=== PATIENT | female | born 1970 | race Caucasian/White ===

== ENCOUNTER → 2020-05-31 14:09 | Outpatient (BNVA) | payer MEDICARE, MEDICAID, SELFPAY | PROVIDERS: Family Provider Family Medicine; PCP Family Medicine; Visit Provider Nurse Practitioner Family | DX: I10 Essential (primary) hypertension (principal); E10.9 Type 1 diabetes mellitus without complications; E56.9 Vitamin deficiency, unspecified; L85.3 Xerosis cutis; L84 Corns and callosities; M79.671 Pain in right foot; L60.2 Onychogryphosis; E10.69 Type 1 diabetes mellitus with other specified complication; Z87.81 Personal history of (healed) traumatic fracture; F33.2 Major depressive disorder, recurrent severe without psychotic features; E55.9 Vitamin D deficiency, unspecified | CPT/HCPCS: 80053; 80061; 82043; 82306; 83036; 84439; 84443 ==

== ENCOUNTER 2020-07-13 13:48 | Emergency (ER) | payer MEDICARE, MEDICAID, SELFPAY ==
[2020-07-13 14:03] VITALS: BP 137/83; PULSE 79; RESP 18; TEMP 36.6; O2SAT 97; BMI 31.4
--- NOTE | 2020-07-13 14:46 | CTR_ITS ---
PROCEDURE INFORMATION: Exam: CT Head Without Contrast Exam date and time: 07/13/2020 3:32 PM Age: 50 years old Clinical indication: Injury or trauma; Fall; Blunt trauma (contusions or hematomas); Patient HX: Seizure with blow to left side of head; Additional info: Recurrent seizures TECHNIQUE: Imaging protocol: Computed tomography of the head without contrast. Radiation optimization: All CT scans at this facility use at least one of these dose optimization techniques: automated exposure control; mA and/or kV adjustment per patient size (includes targeted exams where dose is matched to clinical indication); or iterative reconstruction. COMPARISON: No relevant prior studies available. RADIATION DOSE METRICS: Total DLP (mGy-cm): 842.06 FINDINGS: Brain: Brain parenchyma demonstrates normal attenuation. No significant white matter disease demonstrated. No intracranial hemorrhage noted. No acute infarct demonstrated. Cerebral ventricles: The ventricles are proportional to the sulci. No hydrocephalus is noted. Bones/joints: No fracture or other acute osseous abnormality. Paranasal sinuses: Mild mucoperiosteal thickening in the ethmoid sinuses. No air-fluid levels in the paranasal sinuses. Mastoid air cells: Bilateral mastoidectomies are noted. Soft tissues: The soft tissues appear unremarkable. CT/CT head wo con* [id number] IMPRESSION: 1. No acute intracranial abnormality demonstrated. 2. Bilateral mastoidectomies are noted. Radiation Dose CTDIVOL = (mGy): DLP = 842.06 (mGy-cm)
--- NOTE | 2020-07-13 14:46 | XR_ITS ---
WS: [id number] Exam: XR chest 1V portable [id number] Date/Time of Exam: 07/13/2020 2:46 PM Reason For Exam: seizure No priors. Findings: The lungs are clear and fully expanded. Costophrenic angles are sharp. No infiltrates. Bronchovascula r relief appears normal. Cardiac silhouette is unremarkable. Bony elements are intact. XR/XR chest 1V portable [id number] IMPRESSION: Unremarkable chest radiograph.
--- NOTE | 2020-07-13 14:55 | ED_ITS ---
HPI - Seizure General: Chief Complaint: Seizure Stated Complaint: SENT OVER BY DUE TO FALL AND SEIZURE Time Seen by Provider: 07/13/20 14:24 Source: patient Mode of arrival: ambulatory Limitations: no limitations History of Present Illness: HPI Narrative: Patient is a 50-year-old female with no past medical history of seizures and presents to the emergency department following possible seizure. She states that last night she was with her friend sitting on her porch and she apparently fell down from a sitting position. Her friend said that she was in a tonic state with all her muscles clenched. The whole episode lasted about 20 seconds. The patient states that she has been having hot flashes for several weeks and assumed she was getting to be menopausal. She was also having a hot flash yesterday when the possible seizure happened. She says she was not postictal. Yesterday morning she had also had an episode where she got out of bed and She knew she was on the floor and had broken her dentures into from the fall. She is not sure what happened and is wondering if she had another seizure-like activity. She currently has a headache and nausea. She denies dizziness, denies chest pain or difficulty breathing currently. She denies any fever. She went to see her primary care provider today who asked her to come to the emergency department for evaluation MD complaint: possible seizure Associated symptoms: Deny chills or fever(s) Review of Systems General: Reports: 10 or more systems reviewed and unremarkable except in HPI and below Const: Denies: fever(s), chills or body aches Eyes: Denies: change in vision or blurry vision ENMT: Denies: throat pain, enlarged tonsils, odynophagia, hoarseness, mouth pain or swelling of lips/tongue Card: Denies: palpitations, irregular heart rhythm, edema or swelling of feet/ankles Resp: Denies: dyspnea, productive cough or non-productive cough GI: Reports: nausea; Denies: abdominal pain or vomiting : Denies: flank pain, difficulty voiding, dysuria, urinary frequency, urinary urgency or urinary hesitancy Musc: Denies: neck pain, back pain or extremity swelling Skin/Breast: Denies: rash, pruritus or erythema Neuro: Reports: headache(s) and seizure-like activity; Denies: numbness in extremities or weakness in extremities Endo: Denies: polyuria, polydipsia or tired all the time PFSH ED PFSH: Medical History Anxiety Enrolled in chronic care management Essential hypertension GERD (gastroesophageal reflux disease) Major depressive disorder Type 2 diabetes mellitus Social History Smoking and tobacco status: current every day smoker cigarettes Current gender identity: Female Physical Exam Const: COMMON NORMALS: no acute distress, average body habitus, patient oriented x3, no limitations, healthy appearing, alert and well nourished HENMT: COMMON NORMALS: normocephalic, atraumatic and moist oral mucous membranes HEAD & SCALP: normocephalic and atraumatic Eye: COMMON NORMALS: Equal, round and reactive pupils present, EOMs intact bilaterally, conjunctivae normal and no scleral icterus CONJUNCTIVA: Yes conjunctivae normal PUPIL: Yes Equal, round and reactive pupils present Neck/C-Spine: COMMON NORMALS: full ROM, supple, no meningeal signs, no JVD and No carotid bruits Resp: COMMON NORMALS: normal respiratory effort, No retractions, No use of accessory muscles, clear to auscultation bilaterally and percussion normal AUSCULTATION: clear to auscultation bilaterally PERCUSSION: percussion normal Cardio: COMMON NORMALS: no JVD, regular rate, regular rhythm, S1 normal heart sound present, S2 normal heart sound present, No gallops present (Cardio), No clicks present (Cardio), No murmurs present (Cardio), No rub (Cardio) and Peripheral pulses 2+ throughout RATE: regular rate RHYTHM: regular rhythm HEART SOUNDS: S1 normal heart sound present and S2 normal heart sound present PERIPHERAL PULSES: Peripheral pulses 2+ throughout GI: COMMON NORMALS: Normal to inspection, nondistended, normoactive bowel sounds present, Soft to palpation, non-tender, No hepatosplenomegaly present, no masses and no bruits PALPATION: Yes Soft to palpation and Yes No hepatosplenomegaly present Extremity: COMMON NORMALS: normal to inspection, full ROM, capillary refill normal, no calf tenderness and no pedal edema Neuro: COMMON NORMALS: patient oriented x3 SENSORIUM/ORIENTATION: Yes alert MENINGEAL SIGNS: Yes no meningeal signs Skin: COMMON NORMALS: no rashes or lesions noted, no wounds, turgor normal, no jaundice, no petechiae and no mottling GENERAL SKIN EXAM: no rashes or lesions noted and turgor normal Course Reevaluation(s): Reevaluation #1: Discussed her lab and imaging findings with her. Also discussed my conversation with Dr. Whitfield. We will start her on Keppra and she will be scheduled to follow-up with Dr. Whitfield on we will also schedule an outpatient EEG. She voiced understanding and he is in agreement with the plan Time: 17:30 Consultations: Consultation #1: Discussed the patient with Dr. Whitfield, neurologist. She agrees that it appears patient is having seizures and advises that we start the patient on Keppra 500 mg p.o. twice daily. She needs an outpatient EKG and will see her in the office. She will try to work right in as an add-on in the clinic. Time: 17:27 Vital Signs: Vital signs: Vital Signs Temperature 97.8 F 07/13/20 14:03 Pulse Rate 77 07/13/20 18:00 Respiratory Rate 18 07/13/20 18:00 Blood Pressure 118/74 07/13/20 18:00 Pulse Oximetry 98 07/13/20 18:00 MDM - Seizure MDM Narrative: Medical decision making narrative: Patient with what appears to be new onset seizures. Evaluation in the emergency department is unremarkable and she is discharged home with a prescription for Keppra. She will get an outpatient EEG and be followed by the neurologist. She had no repeat seizures while here in the emergency department. Medical Records: Attestation: I reviewed the patient's medical records. Lab Data: Attestation: I reviewed the patient's lab results. Labs: Lab Results 07/13/20 07/13/20 07/13/20 Range/Units 15:50 15:50 15:50 WBC 11.0 H (4.0-10.0) 10^3/ uL RBC 5.04 (4.1-5.3) 10^6/u L Hgb 16.1 H (11.5-15.3) g/dL Hct 48.6 H (37.0-47.0) % MCV 96.4 (81-99) fL MCH 31.9 (28.0-34.0) pg MCHC 33.1 (30.0-36.0) g/dL RDW 13.6 (12.1-15.1) % Plt Count 302 (130-400) 10^3/c mm MPV 10.9 H (7.4-10.4) fL Neut % (Auto) 58.9 % Lymph % (Auto) 27.0 % [place] % (Auto) 9.3 % Eos % (Auto) 2.7 % Baso % (Auto) 1.9 % Neut # (Auto) 6.47 (1.8-7.7) 10^3/u L Lymph # (Auto) 3.0 (0.8-4.8) 10^3/u L [place] # (Auto) 1.0 H (0.2-0.9) 10^3/u L Eos # (Auto) 0.3 (0.0-0.8) 10^3/u L Baso # (Auto) 0.2 H (0.0-0.1) 10^3/u L Nucleated RBC % (a uto) 0 % Nucleated RBCs # 0.0 /100WBC Sodium 138 (136-145) mmol/L Potassium 4.1 (3.5-5.1) mmol/L Chloride 102 (98-107) mmol/L Carbon Dioxide 25 (22-29) mmol/L Anion Gap 15.1 (5-19) BUN 9 (6-20) mg/dL Creatinine 0.7 (0.5-0.9) mg/dL GFR Calculation 87.9 L (90-130) mL/min Glucose 96 (65-115) mg/dL Calculated Osmolal ity 285 (285-295) mOsm/k g Lactate 0.9 (0.5-2.2) mmol/L Calcium 9.9 (8.5-10.5) mg/dL Magnesium 1.9 (1.7-2.3) mg/dL Total Bilirubin 0.7 (0.15-1.2) mg/dL AST 23 (0-32) U/L ALT 21 (0-33) U/L Alkaline Phosphata se 89 (35-105) IU/L Creatine Kinase 100 (26-192) U/L Troponin T Baselin e (0-10) ng/L C-Reactive Protein 2.1 (0.0-4.9) mg/L Total Protein 6.9 (6.6-8.7) g/dL Albumin 4.8 (3.5-5.2) g/dL Globulin 2.1 (1.3-4.6) g/dL TSH 3.13 (0.27-4.20) uIU/ mL HCG, Qual (Negative) Urine Color (Yellow) Urine Appearance (CLEAR) Urine pH (5-7) Ur Specific Gravit y (1.005-1.030) Urine Protein (Negative) Urine Glucose (UA) (Normal) Urine Ketones (Negative) Urine Blood (Negative) Urine Nitrate (Negative) Urine Bilirubin (Negative) Urine Urobilinogen (Negative) mg/dL Ur Leukocyte Juliet ase (Negative) Urine Opiates Scre en (Negative) ng/mL Ur Barbiturates Sc reen (Negative) ng/mL Ur Phencyclidine S crn (Negative) ng/mL Ur Amphetamines Sc reen (Negative) ng/mL U Benzodiazepines Scrn (Negative) ng/mL Urine Cocaine Scre en (Negative) ng/mL U Marijuana (THC) Screen (Negative) ng/mL Ethyl Alcohol < 10 (0-10) mg/dL 07/13/20 07/13/20 07/13/20 Range/Units 15:50 15:55 15:55 WBC (4.0-10.0) 10^3/ uL RBC (4.1-5.3) 10^6/u L Hgb (11.5-15.3) g/dL Hct (37.0-47.0) % MCV (81-99) fL MCH (28.0-34.0) pg MCHC (30.0-36.0) g/dL RDW (12.1-15.1) % Plt Count (130-400) 10^3/c mm MPV (7.4-10.4) fL Neut % (Auto) % Lymph % (Auto) % [place] % (Auto) % Eos % (Auto) % Baso % (Auto) % Neut # (Auto) (1.8-7.7) 10^3/u L Lymph # (Auto) (0.8-4.8) 10^3/u L [place] # (Auto) (0.2-0.9) 10^3/u L Eos # (Auto) (0.0-0.8) 10^3/u L Baso # (Auto) (0.0-0.1) 10^3/u L Nucleated RBC % (a uto) % Nucleated RBCs # /100WBC Sodium (136-145) mmol/L Potassium (3.5-5.1) mmol/L Chloride (98-107) mmol/L Carbon Dioxide (22-29) mmol/L Anion Gap (5-19) BUN (6-20) mg/dL Creatinine (0.5-0.9) mg/dL GFR Calculation (90-130) mL/min Glucose (65-115) mg/dL Calculated Osmolal ity (285-295) mOsm/k g Lactate (0.5-2.2) mmol/L Calcium (8.5-10.5) mg/dL Magnesium (1.7-2.3) mg/dL Total Bilirubin (0.15-1.2) mg/dL AST (0-32) U/L ALT (0-33) U/L Alkaline Phosphata se (35-105) IU/L Creatine Kinase (26-192) U/L Troponin T Baselin e 6 (0-10) ng/L C-Reactive Protein (0.0-4.9) mg/L Total Protein (6.6-8.7) g/dL Albumin (3.5-5.2) g/dL Globulin (1.3-4.6) g/dL TSH (0.27-4.20) uIU/ mL HCG, Qual Negative (Negative) Urine Color Yellow (Yellow) Urine Appearance Clear (CLEAR) Urine pH 5.0 (5-7) Ur Specific Gravit y 1.025 (1.005-1.030) Urine Protein Neg (Negative) Urine Glucose (UA) Norm (Normal) Urine Ketones 1+ H (Negative) Urine Blood Neg (Negative) Urine Nitrate Negative (Negative) Urine Bilirubin Neg (Negative) Urine Urobilinogen Norm (Negative) mg/dL Ur Leukocyte Juliet ase Negative (Negative) Urine Opiates Scre en (Negative) ng/mL Ur Barbiturates Sc reen (Negative) ng/mL Ur Phencyclidine S crn (Negative) ng/mL Ur Amphetamines Sc reen (Negative) ng/mL U Benzodiazepines Scrn (Negative) ng/mL Urine Cocaine Scre en (Negative) ng/mL U Marijuana (THC) Screen (Negative) ng/mL Ethyl Alcohol (0-10) mg/dL 07/13/20 Range/Units 15:55 WBC (4.0-10.0) 10^3/ uL RBC (4.1-5.3) 10^6/u L Hgb (11.5-15.3) g/dL Hct (37.0-47.0) % MCV (81-99) fL MCH (28.0-34.0) pg MCHC (30.0-36.0) g/dL RDW (12.1-15.1) % Plt Count (130-400) 10^3/c mm MPV (7.4-10.4) fL Neut % (Auto) % Lymph % (Auto) % [place] % (Auto) % Eos % (Auto) % Baso % (Auto) % Neut # (Auto) (1.8-7.7) 10^3/u L Lymph # (Auto) (0.8-4.8) 10^3/u L [place] # (Auto) (0.2-0.9) 10^3/u L Eos # (Auto) (0.0-0.8) 10^3/u L Baso # (Auto) (0.0-0.1) 10^3/u L Nucleated RBC % (a uto) % Nucleated RBCs # /100WBC Sodium (136-145) mmol/L Potassium (3.5-5.1) mmol/L Chloride (98-107) mmol/L Carbon Dioxide (22-29) mmol/L Anion Gap (5-19) BUN (6-20) mg/dL Creatinine (0.5-0.9) mg/dL GFR Calculation (90-130) mL/min Glucose (65-115) mg/dL Calculated Osmolal ity (285-295) mOsm/k g Lactate (0.5-2.2) mmol/L Calcium (8.5-10.5) mg/dL Magnesium (1.7-2.3) mg/dL Total Bilirubin (0.15-1.2) mg/dL AST (0-32) U/L ALT (0-33) U/L Alkaline Phosphata se (35-105) IU/L Creatine Kinase (26-192) U/L Troponin T Baselin e (0-10) ng/L C-Reactive Protein (0.0-4.9) mg/L Total Protein (6.6-8.7) g/dL Albumin (3.5-5.2) g/dL Globulin (1.3-4.6) g/dL TSH (0.27-4.20) uIU/ mL HCG, Qual (Negative) Urine Color (Yellow) Urine Appearance (CLEAR) Urine pH (5-7) Ur Specific Gravit y (1.005-1.030) Urine Protein (Negative) Urine Glucose (UA) (Normal) Urine Ketones (Negative) Urine Blood (Negative) Urine Nitrate (Negative) Urine Bilirubin (Negative) Urine Urobilinogen (Negative) mg/dL Ur Leukocyte Juliet ase (Negative) Urine Opiates Scre en Negative (Negative) ng/mL Ur Barbiturates Sc reen Negative (Negative) ng/mL Ur Phencyclidine S crn Negative (Negative) ng/mL Ur Amphetamines Sc reen Negative (Negative) ng/mL U Benzodiazepines Scrn Negative (Negative) ng/mL Urine Cocaine Scre en Negative (Negative) ng/mL U Marijuana (THC) Screen Positive H (Negative) ng/mL Ethyl Alcohol (0-10) mg/dL Imaging Data^: CXR: Attestation: I personally reviewed and interpreted this imaging study as follows: Radiologist's impression: [address] [address] XRay Report Signed Patient: Ruth Black #: [id number] : 1970Acct#:[id number] Age/Sex: 50 / FADM Date: 07/13/20 Loc: ERRoom/Bed: Attending Dr: Ordering Provider/Ordering MD: Cathie Valencia [place], [facility] of Service: 07/13/20 Procedure(s): XR chest 1V portable [id number] Accession Number(s): [id number] Report Number: [id number] WS: [id number] Exam: XR chest 1V portable [id number] Date/Time of Exam: 07/13/2020 2:46 PM Reason For Exam: seizure No priors. Findings: The lungs are clear and fully expanded. Costophrenic angles are sharp. No infiltrates. Bronchovascular relief appears normal. Cardiac silhouette is unremarkable. Bony elements are intact. XR/XR chest 1V portable [id number] IMPRESSION: Unremarkable chest radiograph. Dictated By:Tj Forte DO Signed By:Subha Gonzalez Date/Time:07/13/20 150 DD/ 1506 CT Head: Attestation: I personally reviewed and interpreted this imaging study as follows: Radiologist's impression: [facility] [address] [place] [address] CT Scan Report Signed Patient: Ruth Black #: [id number] : 1970Acct#:[id number] Age/Sex: 50 / FADM Date: 07/13/20 Loc: ERRoom/Bed: Attending Dr: Ordering Provider/Ordering MD: Cathie Valencia MD, [facility] Date of Service: 07/13/20 Procedure(s): CT head wo con* [id number] Accession Number(s): [id number] Report Number: [id number] PROCEDURE INFORMATION: Exam: CT Head Without Contrast Exam date and time: 07/13/2020 3:32 PM Age: 50 years old Clinical indication: Injury or trauma; Fall; Blunt trauma (contusions or hematomas); Patient HX: Seizure with blow to left side of head; Additional info: Recurrent seizures TECHNIQUE: Imaging protocol: Computed tomography of the head without contrast. Radiation optimization: All CT scans at this facility use at least one of these dose optimization techniques: automated exposure control; mA and/or kV adjustment per patient size (includes targeted exams where dose is matched to clinical indication); or iterative reconstruction. COMPARISON: No relevant prior studies available. RADIATION DOSE METRICS: Total DLP (mGy-cm): 842.06 FINDINGS: Brain: Brain parenchyma demonstrates normal attenuation. No significant white matter disease demonstrated. No intracranial hemorrhage noted. No acute infarct demonstrated. Cerebral ventricles: The ventricles are proportional to the sulci. No hydrocephalus is noted. Bones/joints: No fracture or other acute osseous abnormality. Paranasal sinuses: Mild mucoperiosteal thickening in the ethmoid sinuses. No air-fluid levels in the paranasal sinuses. Mastoid air cells: Bilateral mastoidectomies are noted. Soft tissues: The soft tissues appear unremarkable. CT/CT head wo con* [id number] IMPRESSION: 1. No acute intracranial abnormality demonstrated. 2. Bilateral mastoidectomies are noted. Radiation Dose CTDIVOL = (mGy): DLP = 842.06 (mGy-cm) Dictated By:Carmelo Blair MD Signed By:Carmelo Blair MDSigned Date/Time:07/13/201627 DD/ 25 Discharge Plan Discharge Patient Disposition: Home Clinical Impression: New onset seizure Condition: Stable Prescriptions: New Keppra 500 mg tablet 500 mg PO BID Qty: 60 RF: 0 Continued omeprazole 40 mg capsule,delayed release(DR/EC) 40 mg PO QAM RF: 0 desvenlafaxine succinate [Pristiq] 100 mg tablet extended release 24 hr 100 mg PO DAILY RF: 0 fluticasone propionate [Allergy Relief (fluticasone)] 50 mcg/actuation spray,suspension 2 spray INTRANASAL DAILY PRN (Reason: unknown) RF: 0 glucagon 1 mg/0.2 mL syringe See Rx Instructions .ROUTE .COMPLEX RF: 0 albuterol sulfate [ProAir HFA] 90 mcg/actuation HFA aerosol inhaler 2 puff INHALATION Q6H PRN (Reason: Shortness Of Breath) RF: 0 Levemir FlexTouch U-100 Insuln 100 unit/mL (3 mL) insulin pen See Rx Instructions .ROUTE .COMPLEX RF: 0 amoxicillin-pot clavulanate [Augmentin] 875-125 mg tablet 1 tab PO BID 10 Days Qty: 20 RF: 0 epinephrine 0.3 mg/0.3 mL syringe 0.3 mg IM Q10M PRN (Reason: anaphylaxis) Qty: 2 RF: 3 pramipexole 1 mg tablet 1 mg PO BEDTIME RF: 0 Tylenol Extra Strength 500 mg Tablet 1,000 mg PO PRN RF: 0 Zyrtec 10 mg capsule 10 mg PO DAILY RF: 0 Discharge Orders: Discharge Order (Routine); Ordered 07/13/20 Ordered By: Cathie Valencia Referrals: Maria Ines Whitfield MD [Physician] - Discharge Diet: Usual diet Discharge Activity: Increase activity as tolerated Patient Instructions: New-Onset Seizure in Adults (ED) Activity Restrictions/Additional Instructions: Return for any new or worsening symptoms. Follow-up with your primary care provider within 3 days. You will be scheduled to see the neurologist as soon as possible, you will also be scheduled for an outpatient EEG which will measure your brain waves and see if you are having seizures. In the interim start taking the antiseizure medications. Drink plenty of fluids to keep well-hydrated. Coding Level of Care Code ED Legal Specialist for [employer] Fwd Exam Comprehensive
[2020-07-13 16:15] LABS: Add Urine Microscopic? NO
[2020-07-13 16:18] LABS: Basophils # 0.2 10^3/uL (0.0-0.1); Basophils % 1.9 %; Eosinophils # 0.3 10^3/uL (0.0-0.8); Eosinophils % 2.7 %; Hematocrit 48.6 % (37.0-47.0); Hemoglobin 16.1 g/dL (11.5-15.3); Mean Corpuscular HGB Conc 33.1 g/dL (30.0-36.0); Mean Corpuscular Hemoglobin 31.9 pg (28.0-34.0); Mean Corpuscular Volume 96.4 fL (81-99); Mean Platelet Volume 10.9 fL (7.4-10.4); Monocytes % 9.3 %; Neutrophils # 6.47 10^3/uL (1.8-7.7); Neutrophils % 58.9 %; Nucleated Red Blood Cells % 0 %; Platelet Count 302 10^3/cmm (130-400); Red Blood Count 5.04 10^6/uL (4.1-5.3); Red Cell Distribution Width 13.6 % (12.1-15.1)
[2020-07-13 16:24] LABS: Bilirubin Urine Neg (Negative); Blood Urine Neg (Negative); Glucose Urine UA Norm (Normal); Ketones Urine 1+ (Negative); Leukocyte Esterase Urine Negative (Negative); Nitrate Urine Negative (Negative); Protein Urine Neg (Negative); Specific Gravity, Urine 1.025 (1.005-1.030); Urine Appearance Clear (CLEAR); Urine Color Yellow (Yellow); Urobilinogen Urine Norm (Negative)
[2020-07-13 16:26] LABS: HCG Qualitative Urine. Negative (Negative)
[2020-07-13 16:33] LABS: Lactate (Lactic Acid level) 0.9 mmol/L (0.5-2.2)
[2020-07-13 16:34] LABS: Amphetamines Screen Urine Negative (Negative); Barbiturates Screen Urine Negative (Negative); Benzodiazepines Screen Urine Negative (Negative); Cocaine Screen Urine Negative (Negative); Opiate Screen Urine Negative (Negative); PCP Screen Urine Negative (Negative); THC Screen Urine Positive (Negative)
[2020-07-13 16:39] LABS: Troponin(5th) Baseline 6 ng/L (0-10)
[2020-07-13 16:48] LABS: Alanine Aminotransferase 21 U/L (0-33); Albumin Level 4.8 g/dL (3.5-5.2); Alkaline Phosphatase 89 IU/L (35-105); Anion Gap 15.1 (5-19); Aspartate Amino Transferase 23 U/L (0-32); Blood Urea Nitrogen 9 mg/dL (6-20); C Reactive Protein 2.1 mg/L (0.0-4.9); Calcium 9.9 mg/dL (8.5-10.5); Carbon Dioxide 25 mmol/L (22-29); Chloride 102 mmol/L (98-107); Creatine Phosphokinase 100 U/L (26-192); Globulin 2.1 g/dL (1.3-4.6); Glomerular Filtration Rate 87.9 mL/min (90-130); Glucose 96 mg/dL (65-115); Magnesium 1.9 mg/dL (1.7-2.3); Osmolality Calculated 285 mOsm/kg (285-295); Potassium 4.1 mmol/L (3.5-5.1); Sodium 138 mmol/L (136-145); Thyroid Stimulating Hormone 3.13 uIU/mL (0.27-4.20); Total Bilirubin 0.7 mg/dL (0.15-1.2); Total Protein 6.9 g/dL (6.6-8.7)
[2020-07-13 16:49] LABS: Alcohol Level < 10 mg/dL (0-10)
[2020-07-13] MEDS: diphenhydrAMINE 50 mg/mL SDV 1mL IVP (17:55)
[2020-07-13] MEDS: ketorolac 30 mg/mL INJ IVP (17:56)
[2020-07-13] MEDS: levETIRAcetam 500 mg Tablet PO (17:57)
[2020-07-13 18:00] VITALS: BP 118/74; PULSE 77; RESP 18; O2SAT 98
--- NOTE | 2020-07-14 10:23 | DCPLANNER ---
Addendum entered by Tamara Booker 07/19/20 13:43: server manager faxed the order for the EEG to Dr. Shaw office. Original Note: server manager had message to schedule a follow up appointment for patient with Dr. Whitfield. server manager called the office of Dr. Shaw office, left a voicemail for Flor Hoskins, submarine element coordinator. server manager left patients information, patients information will be printed and reviewed. Clinic will call patient with appointment information. server manager also had message to schedule an out patient EEG for patient. server manager faxed order to centralized scheduling. server manager will call for appointment information.
--- NOTE | 2020-07-20 11:05 | DCPLANNER ---
Patient has a follow up appointment scheduled for Saturday, July 25, 2020 at 8:[address] Whitfield. Clinic will call patient with appointment information.
--- NOTE | 2020-07-27 10:51 | DCPLANNER ---
Patient has a follow up appointment scheduled for an EEG for Sunday, August 02, 2020 at 3:00. Clinic will call patient with appointment information.
--- NOTE | 2020-08-09 15:27 | DCPLANNER ---
Patient had a EEG scheduled for 08.02.20 - patient did attend Patient had a follow up appointment scheduled for 07.25.[address] Whitfield - patient did attend appointment.
== END 2020-07-13 19:01 | disposition home or self-care (01) ==
PROVIDERS: Emergency Provider Family Medicine
DX: G40.89 Other seizures (principal); Z79.4 Long term (current) use of insulin; I10 Essential (primary) hypertension; E11.9 Type 2 diabetes mellitus without complications; F17.210 Nicotine dependence, cigarettes, uncomplicated
CPT/HCPCS: 12345; 70450; 71045; 80053; 80306; 80307; 81003; 81025; 82550; 83605; 83735; 84443; 84484; 85025; 86140; 96374; 96375; 99283; J1200; J1885

== ENCOUNTER → 2020-07-25 07:46 | Outpatient (BNVA) | payer MEDICARE, MEDICAID, SELFPAY | PROVIDERS: Visit Provider Specialist | DX: R56.9 Unspecified convulsions (principal); G43.711 Chronic migraine without aura, intractable, with status migrainosus; F43.10 Post-traumatic stress disorder, unspecified; E11.9 Type 2 diabetes mellitus without complications; Z79.4 Long term (current) use of insulin; F17.210 Nicotine dependence, cigarettes, uncomplicated | CPT/HCPCS: 99205 ==

== ENCOUNTER → 2020-08-02 14:57 | Outpatient (BNVA) | payer MEDICARE, MEDICAID, SELFPAY | PROVIDERS: PCP Registered Nurse; Visit Provider Specialist | DX: R56.9 Unspecified convulsions (principal); F17.210 Nicotine dependence, cigarettes, uncomplicated | CPT/HCPCS: 95816 ==

== ENCOUNTER → 2021-02-01 11:33 | Outpatient (BNVA) | payer MEDICARE, MEDICAID, SELFPAY | PROVIDERS: PCP Nurse Practitioner Family; Visit Provider Nurse Practitioner Family | DX: I10 Essential (primary) hypertension (principal); E10.69 Type 1 diabetes mellitus with other specified complication; Z68.30 Body mass index [BMI] 30.0-30.9, adult; M79.18 Myalgia, other site | CPT/HCPCS: 80053; 80061; 83036 ==

== ENCOUNTER 2021-03-07 14:36 | Outpatient (CLI) | payer MEDICARE, MEDICAID, SELFPAY ==
--- NOTE | 2021-03-07 14:45 | XR_ITS ---
WS: [id number] DEXA (DUAL ENERGY X-RAY ABSORPTIOMETRY) Bone mineral density was performed using a [employer] machine. HISTORY: Z78.0 - Asymptomatic menopausal state COMPARISON: None available. Lumbar spine BMD (L1-L4): 1.221 g/cm2 T score: 0.3 Z score: 0.6 Total hip BMD: Left: 0.942 g/cm2. T score: -0.5 Z score: -0.2 Right: 0.981 g/cm2. T score: -0.2 Z score: 0.1 Left forearm BMD: 0.874 g/cm2. T score: 0.0 Z score: 0.3 10 year probability of a major osteoporotic fracture is 10%. XR/XR DEXA axial skeleton* [id number] IMPRESSION: NORMAL BONE MINERAL DENSITY based upon the WHO classification for females.
== END 2021-03-07 14:37 | disposition home or self-care (01) ==
PROVIDERS: PCP Nurse Practitioner Family; Visit Provider Nurse Practitioner Family
DX: Z78.0 Asymptomatic menopausal state (principal)
CPT/HCPCS: 77080

== ENCOUNTER → 2021-03-13 16:24 | Outpatient (BNVA) | payer MEDICARE, MEDICAID, SELFPAY | PROVIDERS: PCP Nurse Practitioner Family; Visit Provider Nurse Practitioner Family | DX: M54.2 Cervicalgia (principal); G89.29 Other chronic pain; R20.0 Anesthesia of skin; R20.2 Paresthesia of skin; S30.861A Insect bite (nonvenomous) of abdominal wall, initial encounter; W57.XXXA Bitten or stung by nonvenomous insect and other nonvenomous arthropods, initial encounter; R52 Pain, unspecified; Z68.30 Body mass index [BMI] 30.0-30.9, adult | CPT/HCPCS: 86000; 86618; 86666; 86757 ==

== ENCOUNTER 2021-03-23 10:53 | Outpatient (CLI) | payer MEDICARE, MEDICAID, SELFPAY ==
--- NOTE | 2021-03-23 11:00 | MR_ITS ---
WS: [id number] MRI CERVICAL SPINE NONCONTRAST AND CONTRAST TECHNIQUE: Sagittal T1, T2 and STIR imaging. Axial T2, gradient, and fiesta imaging. Post gadolinium imaging was obtained. CLINICAL INFORMATION: M54.2 - Cervicalgia COMPARISON: None. FINDINGS: Normal cervical alignment. No acute compression. Cord signal is normal. Prominent central disc protru rhina at C5-C6. C2-C3: Normal. C3-C4: Normal. C4-C5: Mild disc bulging with slight effacement of the ventral thecal sac. Tiny shallow central protr usion. Mild central canal stenosis. Mild left foraminal narrowing. Mild facet arthropathy. C5-C6: Right pericentral shallow disc protrusion. Slight indentation on cervical cord with mild/moder ate central canal stenosis. Moderate left and mild right bony foraminal narrowing. C6-C7: Minimal disc bulging with osteophytic ridging. Small right pericentral annular fissure. Mild l eft and no significant right foraminal narrowing. C7-T1: Disc osteophytic ridging eccentric to the left. Mild to moderate left and no significant right foraminal narrowing. Spinal canal is patent. Visualized brain stem structures: Normal. Prevertebral soft tissues: Normal. MR/MR cervical spine wo/w [id number] IMPRESSION: 1. Normal cervical alignment. No high-grade central canal stenosis. Cord signa l is normal. 2. Right pericentral disc protrusion C5-C6 with slight indentation on the righ t ventral cervical cord and mild to moderate central canal stenosis. 3. Tiny shallow central protrusion C4-5 with mild central canal stenosis. 4. Mild disc osteophyte complex C6-7 with a tiny annular fissure. Slight effac ement of ventral thecal sac. 5. Mild to moderate bony foraminal narrowing worse at left C5-C6, left C6-C7 a nd left C7-T1.
[2021-03-23] MEDS: gadobenate dimeglumine 20 mL vial IV (11:38)
== END 2021-03-23 10:54 | disposition home or self-care (01) ==
PROVIDERS: PCP Nurse Practitioner Family; Visit Provider Nurse Practitioner Family
DX: G89.29 Other chronic pain (principal); R20.0 Anesthesia of skin; R20.2 Paresthesia of skin; M25.78 Osteophyte, vertebrae; M50.221 Other cervical disc displacement at C4-C5 level
CPT/HCPCS: 72156; A9577

== ENCOUNTER → 2021-04-03 11:06 | Outpatient (BNVA) | payer MEDICARE, MEDICAID, SELFPAY | PROVIDERS: PCP Nurse Practitioner Family; Visit Provider Nurse Practitioner Family | DX: Z20.822 Contact with and (suspected) exposure to COVID-19 (principal) | CPT/HCPCS: 87635 ==

== ENCOUNTER → 2021-10-10 14:08 | Outpatient (BNVA) | payer MEDICARE, MEDICAID, SELFPAY | PROVIDERS: PCP Nurse Practitioner Family; Visit Provider Physician Assistant | DX: M54.2 Cervicalgia (principal) | CPT/HCPCS: 72050 ==

== ENCOUNTER → 2021-10-17 09:30 | Outpatient (BNVA) | payer MEDICARE, MEDICAID, SELFPAY | PROVIDERS: PCP Nurse Practitioner Family; Visit Provider Physician Assistant | DX: M54.50 Low back pain, unspecified (principal) | CPT/HCPCS: 72110 ==

== ENCOUNTER → 2021-10-31 10:06 | Outpatient (BNVA) | payer MEDICARE, MEDICAID, SELFPAY | PROVIDERS: PCP Nurse Practitioner Family; Referring Provider Physician Assistant; Visit Provider Anesthesiology Pain Medicine | DX: G89.29 Other chronic pain (principal); M47.22 Other spondylosis with radiculopathy, cervical region; M47.812 Spondylosis without myelopathy or radiculopathy, cervical region; M51.36 Other intervertebral disc degeneration, lumbar region; F17.210 Nicotine dependence, cigarettes, uncomplicated | CPT/HCPCS: 99204 ==

== ENCOUNTER 2021-11-15 06:00 | Outpatient (RCR) | payer MEDICARE, MEDICAID, SELFPAY | END 2021-11-23 23:59 | disposition home or self-care (01) | LOC: GPT 06:00 | PROVIDERS: PCP Nurse Practitioner Family; Referring Provider Physician Assistant; Visit Provider Physician Assistant | DX: M54.50 Low back pain, unspecified (principal) | CPT/HCPCS: 97110; 97162 ==

== ENCOUNTER 2022-04-02 10:09 | Outpatient (CLI) | payer MEDICARE, MEDICAID, SELFPAY ==
--- NOTE | 2022-04-02 10:23 | MM_ITS ---
WS: [id number] BILATERAL SCREENING DIGITAL TOMOSYNTHESIS MAMMOGRAM WITH CAD HISTORY: SCREENING COMPARISON: 09/17/2014 Bilateral CC and MLO views with tomosynthesis and synthetic mammography submitted. Computer aided det ection analyzed. Breast composition: There are scattered areas of fibroglandular density. No suspicious masses, microc alcifications or architectural distortion. Benign calcification anterior RIGHT breast. MM/[place] [id number] IMPRESSION: BI-RADS: 2-Benign FOLLOW UP: 1 Year Follow-up
== END 2022-04-02 10:10 | disposition home or self-care (01) ==
LOC: RAD 10:10
PROVIDERS: PCP Nurse Practitioner Family; Visit Provider Nurse Practitioner Family
DX: Z12.31 Encounter for screening mammogram for malignant neoplasm of breast (principal)
CPT/HCPCS: 77063; 77067

== ENCOUNTER 2023-02-06 09:33 | Emergency (ER) | payer MEDICARE, MEDICAID, SELFPAY ==
[2023-02-06 09:38] VITALS: BP 169/105; PULSE 81; RESP 16; TEMP 36.5; O2SAT 99; BMI 29.8
--- NOTE | 2023-02-06 09:49 | W.ED.BACK ---
HPI - Back Pain/Injury General: Chief Complaint: Extremity Problem,Nontraumatic Stated Complaint: left leg and lower back pain Time Seen by Provider: 02/06/23 09:34 Source: patient Mode of arrival: ambulatory History of Present Illness: 52-year-old female presents emergency room with left-sided back pain radiating down the lateral aspect of her leg into her calf at times into her toes. She not having any fecal incontinence or urinary retention. She has been able to walk her symptoms and getting progressively worse not any swelling in her legs no chest pain or shortness of breath. MD elicited complaint: back pain Pertinent past history: prior back pain Onset (ago): day(s) (3) Timing: constant Severity: mild Similar Symptoms Previously: Yes Quality: spasming Location: lumbar spine Radiation: none Exacerbating factors: none Relieving factors: none Associated symptoms: Deny abdominal pain, arthralgias, chills, difficulty walking, dysuria, fatigue, fever(s), hematuria, myalgias, nausea, numbness, syncope, tingling/numbness/burning, urinary frequency, urinary urgency, vomiting or weakness Review of Systems Const: Denies: fever(s), chills or fatigue ENMT: Denies: throat pain, ear or mastoid pain, nasal discharge or nasal congestion Card: Denies: chest pain, palpitations, irregular heart rhythm or syncope Resp: Denies: dyspnea GI: Denies: abdominal pain, nausea or vomiting : Denies: difficulty voiding, dysuria, urinary frequency, urinary urgency or hematuria Musc: Reports: back pain and extremity pain; Denies: extremity swelling Skin/Breast: Denies: rash or pruritus Neuro: Denies: difficulty walking PFS ED PFSH: Medical History Anxiety Enrolled in chronic care management Essential hypertension GERD (gastroesophageal reflux disease) Major depressive disorder Type 2 diabetes mellitus Social History Smoking and tobacco status: current every day smoker cigarettes Packs smoked per day: 1 Alcohol intake: never Substance/Drug Use: never Current gender identity: Female Physical Exam Const: GENERAL APPEARANCE: cooperative and comfortable ORIENTATION/CONSCIOUSNESS: Yes awake, Yes oriented to person, Yes oriented to place and Yes oriented to time HENMT: COMMON NORMALS: normocephalic, atraumatic and hearing grossly normal bilaterally HEAD & SCALP: normocephalic and atraumatic Resp: COMMON NORMALS: normal respiratory effort, No retractions, No use of accessory muscles and clear to auscultation bilaterally AUSCULTATION: clear to auscultation bilaterally Cardio: COMMON NORMALS: regular rate, regular rhythm and No murmurs present (Cardio) RATE: regular rate RHYTHM: regular rhythm Extremity: COMMON NORMALS: normal to inspection, capillary refill normal, no clubbing, cyanosis or edema, no calf tenderness and no pedal edema Neuro: SENSORIUM/ORIENTATION: Yes oriented to person, Yes oriented to place and Yes oriented to time OTHER: Straight leg raising is negative deep tendon reflexes +2/4 at the patellar tendons dorsum plantar flex strength 5/5 EHL bilaterally 5/5 Skin: COMMON NORMALS: no rashes or lesions noted GENERAL SKIN EXAM: no rashes or lesions noted Course Vital Signs: Vital signs: Vital Signs Temperature 97.7 F 02/06/23 09:38 Pulse Rate 82 02/06/23 10:56 Respiratory Rate 16 02/06/23 10:56 Blood Pressure 131/86 02/06/23 10:56 Pulse Oximetry 97 02/06/23 10:56 Oxygen Delivery Me thod Room Air 02/06/23 10:56 MDM - Back Pain/Injury Medical Decision Making Significant improvement after medications. Patient is concerned of a blood clot clinically she has no evidence of DVT at this time. Recommend that she follow-up with orthopedic spine surgery she tells me she has seen Dr. Aldana in the past. She has had cervical MRI but not had a MRI of the lumbar spine. Reevaluate with Ortho if not improving may need further advanced imaging. Medical Records I reviewed the patient's medical records. Labs I reviewed the patient's lab results. Discharge Plan Discharge Patient Disposition: Home Clinical Impression: Acute left lumbar radiculopathy Condition: Stable Prescriptions: New tizanidine 4 mg tablet 4 mg PO Q6H PRN (Reason: muscle spasticity) Qty: 20 0RF Rx Instructions: do not exceed 3 doses per 24 hrs prednisone 20 mg tablet 20 mg PO TID Qty: 15 0RF Rx Instructions: 1 p.o. 3 times daily x3 days, 1 p.o. twice daily x2 days, 1 p.o. daily x2 days diclofenac sodium 75 mg tablet,delayed release (DR/EC) 75 mg PO Q12H PRN (Reason: pain) Qty: 20 0RF No Action omeprazole 40 mg capsule,delayed release(DR/EC) 40 mg PO QAM cyclobenzaprine 10 mg tablet 10 mg PO TID PRN (Reason: muscle spasm) Qty: 30 0RF epinephrine 0.3 mg/0.3 mL syringe 0.3 mg IM Q10M PRN (Reason: anaphylaxis) Qty: 2 3RF Rx Instructions: for 2 doses pt ellyn picked up this medication from the pharmacy yet fluticasone propionate [Allergy Relief (fluticasone)] 50 mcg/actuation spray,suspension 2 spray INTRANASAL DAILY Qty: 16 11RF albuterol sulfate [ProAir HFA] 90 mcg/actuation HFA aerosol inhaler 2 puff INHALATION Q6H PRN (Reason: Shortness Of Breath) Qty: 8.5 2RF acetaminophen [Tylenol Extra Strength] 500 mg Tablet 1,000 mg PO PRN Stephanie 60 mg Tablet 60 mg PO Q12H ibuprofen 600 mg tablet 600 mg PO Q8H PRN (Reason: Pain) Aleve 220 mg Capsule 220 mg PO BID PRN (Reason: Pain) Discharge Orders: Discharge ED (Routine); Ordered 02/06/23 Ordered By: Miko Hutchins Referrals: Brittany Hogue, RN ELIGIBILITY [Primary Care Provider] - Discharge Diet: Usual diet Discharge Activity: Increase activity as tolerated Patient Instructions: Lumbar Radiculopathy (ED), Opioid Safety, Pain Management Coding Level of Care Code ED Department Store Door Greeter for Gypsy Calderon
[2023-02-06] MEDS: diphenhydrAMINE 50 mg/mL SDV 1mL IVP (10:26)
[2023-02-06] MEDS: ketorolac 30 mg/mL INJ IVP (10:26)
[2023-02-06] MEDS: dexamethasone 10 mg/mL INJ IVP (10:26)
[2023-02-06 10:27] VITALS: RESP 16; O2SAT 100
[2023-02-06] MEDS: morphine 4 mg/mL SDV 1 mL IVP (10:27)
[2023-02-06 10:56] VITALS: BP 131/86; PULSE 82; RESP 16; O2SAT 97
== END 2023-02-06 11:38 | disposition home or self-care (01) ==
PROVIDERS: Emergency Provider Family Medicine; PCP Nurse Practitioner Family
DX: M54.16 Radiculopathy, lumbar region (principal)
CPT/HCPCS: 96374; 96375; 99284; J1100; J1200; J1885; J2270

== ENCOUNTER 2023-02-14 15:37 | Emergency (ER) | payer MEDICARE, MEDICAID, SELFPAY ==
[2023-02-14 15:49] VITALS: BP 134/82; PULSE 89; RESP 18; TEMP 36.6; O2SAT 97; BMI 30.2
--- NOTE | 2023-02-14 16:37 | W.ED.EXTPRO ---
HPI - Extremity Problem General: Chief complaint: Extremity Problem,Nontraumatic Stated complaint: LT Leg weakness/Pain Time Seen by Provider: 02/14/23 15:55 Source: patient Mode of arrival: ambulatory History of Present Illness: 52-year-old female presents emergency room complaining of back pain with pain radiating down her left leg this been ongoing off for the last 2 weeks now. Its become worse in the last 24 hours. No urinary retention no fecal incontinence no falls or trauma. No previous advanced imaging. Reviewing the chart patient has had several visits recently for back pain with radicular symptoms including seeing myself 8 days ago. She said it got better with medications and then the steroids ran out it worsened again. MD Complaint: extremity pain Onset (ago): month(s) Pain Consistency: constant Location: left and lower extremity Quality: sharp Radiation: distal Relieving factors: rest Exacerbating factors: walking Associated symptoms: Deny arthralgias, chest pain, fever(s), myalgias, rash or short of breath Review of Systems Const: Denies: fever(s) ENMT: Denies: throat pain, ear or mastoid pain, nasal discharge or nasal congestion Card: Denies: chest pain Resp: Denies: dyspnea, productive cough or non-productive cough GI: Denies: abdominal pain, nausea, vomiting, hematemesis, coffee ground emesis, diarrhea, constipation, bloating, hematochezia or melena : Denies: flank pain, difficulty voiding, dysuria, urinary frequency or urinary urgency Skin/Breast: Denies: rash PFSH ED PFSH: Medical History Anxiety Enrolled in chronic care management Essential hypertension GERD (gastroesophageal reflux disease) Major depressive disorder Type 2 diabetes mellitus Social History Smoking and tobacco status: current every day smoker cigarettes Packs smoked per day: 1 Alcohol intake: never Substance/Drug Use: never Current gender identity: Female Physical Exam Const: GENERAL APPEARANCE: cooperative and comfortable ORIENTATION/CONSCIOUSNESS: Yes awake, Yes oriented to person, Yes oriented to place and Yes oriented to time HENMT: COMMON NORMALS: normocephalic, atraumatic and hearing grossly normal bilaterally HEAD & SCALP: normocephalic and atraumatic Resp: COMMON NORMALS: normal respiratory effort, No retractions, No use of accessory muscles and clear to auscultation bilaterally AUSCULTATION: clear to auscultation bilaterally Cardio: COMMON NORMALS: regular rate, regular rhythm and No murmurs present (Cardio) RATE: regular rate RHYTHM: regular rhythm GI: COMMON NORMALS: Soft to palpation and No hepatosplenomegaly present AUSCULTATION: Yes normoactive bowel sounds PALPATION: Yes Soft to palpation, No Tenderness to palpation present (GI), No Guarding due to palpation present (GI) and Yes No hepatosplenomegaly present Extremity: COMMON NORMALS: normal to inspection, capillary refill normal, no clubbing, cyanosis or edema, no calf tenderness and no pedal edema OTHER: Straight leg raising is positive on the left leg she has wasting of the left leg muscles compared to the right deep tendon reflexes on obtainable on the left +104 on the right dorsum plantarflexion 5 of 5 extensor hallux longus equal bilaterally decreased sensation L4-5 distribution on the left leg. Peripheral pulses normal Neuro: SENSORIUM/ORIENTATION: Yes oriented to person, Yes oriented to place and Yes oriented to time Skin: COMMON NORMALS: no rashes or lesions noted GENERAL SKIN EXAM: no rashes or lesions noted Course Vital Signs: Vital signs: Vital Signs Temperature 97.8 F 02/14/23 15:49 Pulse Rate 68 02/14/23 17:07 Respiratory Rate 18 02/14/23 17:07 Blood Pressure 134/81 02/14/23 17:07 Pulse Oximetry 95 02/14/23 17:07 Oxygen Delivery Me thod Room Air 02/14/23 15:49 MDM - Extremity (Nontraumatic) Medical Decision Making Lumbar radiculopathy no red flag symptoms at this point. Is been ongoing for several weeks if not months. We will discharge patient home set her up for outpatient testing and follow-up with orthopedic spine surgery. Medical Records I reviewed the patient's medical records. Lab Data I reviewed the patient's lab results. Discharge Plan Discharge Patient Disposition: Home Clinical Impression: Left lumbar radiculopathy Condition: Stable Prescriptions: New tizanidine 4 mg tablet 4 mg PO Q6H PRN (Reason: muscle spasticity) Qty: 20 0RF Rx Instructions: do not exceed 3 doses per 24 hrs prednisone 20 mg tablet 20 mg PO TID Qty: 15 0RF Rx Instructions: 1 p.o. 3 times daily x3 days, 1 p.o. twice daily x2 days, 1 p.o. daily x2 days No Action omeprazole 40 mg capsule,delayed release(DR/EC) 40 mg PO QAM cyclobenzaprine 10 mg tablet 10 mg PO TID PRN (Reason: muscle spasm) Qty: 30 0RF epinephrine 0.3 mg/0.3 mL syringe 0.3 mg IM Q10M PRN (Reason: anaphylaxis) Qty: 2 3RF Rx Instructions: for 2 doses pt hasnt picked up this medication from the pharmacy yet fluticasone propionate [Allergy Relief (fluticasone)] 50 mcg/actuation spray,suspension 2 spray INTRANASAL DAILY Qty: 16 11RF ondansetron 8 mg tablet,disintegrating 8 mg PO Q8H PRN (Reason: nausea and vomiting) Qty: 20 0RF albuterol sulfate [ProAir HFA] 90 mcg/actuation HFA aerosol inhaler 2 puff INHALATION Q6H PRN (Reason: Shortness Of Breath) Qty: 8.5 2RF acetaminophen [Tylenol Extra Strength] 500 mg Tablet 1,000 mg PO PRN Stephanie 60 mg Tablet 60 mg PO Q12H ibuprofen 600 mg tablet 600 mg PO Q8H PRN (Reason: Pain) Aleve 220 mg Capsule 220 mg PO BID PRN (Reason: Pain) tizanidine 4 mg tablet 4 mg PO Q6H PRN (Reason: muscle spasticity) Qty: 20 0RF Rx Instructions: do not exceed 3 doses per 24 hrs prednisone 20 mg tablet 20 mg PO TID Qty: 15 0RF Rx Instructions: 1 p.o. 3 times daily x3 days, 1 p.o. twice daily x2 days, 1 p.o. daily x2 days diclofenac sodium 75 mg tablet,delayed release (DR/EC) 75 mg PO Q12H PRN (Reason: pain) Qty: 20 0RF Discharge Orders: Discharge ED (Routine); Ordered 02/14/23 Ordered By: Miko Hutchins Referrals: Brittany Hogue, WAGON DRIVER [Primary Care Provider] - Discharge Diet: Usual diet Discharge Activity: Increase activity as tolerated Patient Instructions: Opioid Safety, Pain Management Activity Restrictions/Additional Instructions: accredited farm manager will make arrangements for an outpatient MRI of the lumbar spine and follow-up with Dr. Aldana. Continue to use the tizanidine start the oral steroid taper tomorrow use other pain medications as needed. Stand Alone Forms: Work/School Release Coding Level of Care Code ED Second Cook And Baker for Gypsy Calderon
[2023-02-14 16:43] VITALS: RESP 18
[2023-02-14] MEDS: ketorolac 30 mg/mL INJ IVP (16:43)
[2023-02-14] MEDS: morphine 4 mg/mL SDV 1 mL IVP (16:43)
[2023-02-14] MEDS: dexamethasone 10 mg/mL INJ IVP (16:43)
[2023-02-14] MEDS: tizanidine 4 mg Tablet PO (16:43)
[2023-02-14 17:07] VITALS: BP 134/81; PULSE 68; RESP 18; O2SAT 95
== END 2023-02-14 17:08 | disposition home or self-care (01) ==
PROVIDERS: Emergency Provider Family Medicine; PCP Nurse Practitioner Family
DX: M54.16 Radiculopathy, lumbar region (principal); I10 Essential (primary) hypertension; E11.9 Type 2 diabetes mellitus without complications; F17.210 Nicotine dependence, cigarettes, uncomplicated
CPT/HCPCS: 96374; 96375; 99284; J1100; J1885; J2270

== ENCOUNTER 2023-02-21 10:33 | Emergency (ER) | payer MEDICARE, MEDICAID, SELFPAY ==
[2023-02-21] VITALS (7 sets, daily range): BP systolic 126–170; BP diastolic 72–98; PULSE 56–80; RESP 16; TEMP 36.5; O2SAT 98–100; BMI 30.2
[2023-02-21 11:51] LABS: Basophils # 0.1 10^3/uL (0.0-0.1); Basophils % 0.8 %; Eosinophils # 0.2 10^3/uL (0.0-0.8); Eosinophils % 1.5 %; Hematocrit 47.2 % (37.0-47.0); Hemoglobin 15.3 g/dL (11.5-15.3); Lymphocytes # 2.7 10^3/uL (0.8-4.8); Lymphocytes % 18.8 %; Mean Corpuscular HGB Conc 32.4 g/dL (30.0-36.0); Mean Corpuscular Hemoglobin 31.1 pg (28.0-34.0); Mean Corpuscular Volume 95.9 fl (81-99); Mean Platelet Volume 10.2 fL (7.4-10.4); Monocytes # 1.3 10^3/uL (0.2-0.9); Monocytes % 8.9 %; Neutrophils # 9.87 10^3/uL (1.8-7.7); Neutrophils % 69.6 %; Nucleated Red Blood Cells % 0 %; Platelet Count 320 10^3/cmm (130-400); Red Blood Count 4.92 10^6/uL (4.1-5.3); Red Cell Distribution Width 14.6 % (12.1-15.1); White Blood Count 14.2 10^3/uL (4.0-10.0)
[2023-02-21 12:08] LABS: Alanine Aminotransferase 20 U/L (0-33); Alkaline Phosphatase 77 U/L (35-105); Anion Gap 13.5 (5-19); Aspartate Amino Transferase 12 U/L (0-32); Blood Urea Nitrogen 17 mg/dL (6-20); Carbon Dioxide 27 mmol/L (22-29); Chloride 100 mmol/L (98-107); Creatinine Clr Calc Pharmacy 109.5701; Globulin 2.6 g/dL (1.3-4.6); Glomerular Filtration Rate 104.2 mL/min (90-130); Glucose 112 mg/dL (65-115); Lipase 15 U/L (13-60); Osmolality Calculated 284 mOsm/kg (285-295); Potassium 4.5 mmol/L (3.5-5.1); Sodium 136 mmol/L (136-145); Total Bilirubin 0.7 mg/dL (0.15-1.2); Total Protein 6.6 g/dL (6.6-8.7)
--- NOTE | 2023-02-21 13:32 | W.ED.ABDPA2 ---
HPI - Abdominal Pain General: Chief Complaint: Abdominal Pain Stated Complaint: abd pain, has a lapband Time Seen by Provider: 02/21/23 13:20 Source: patient Mode of arrival: ambulatory Limitations: no limitations History of Present Illness: Patient is a 52-year-old female who presents to ED today with complaint of intermittent abdominal pain. Patient states over the past few days she has been getting severe abdominal pain following eating/drinking. She states she thinks it might be secondary to some medication she was placed on for sciatica discomforts. She states she has been taking steroids as well as a muscle relaxer. Patient is reporting nausea but has not had any episodes of vomiting. She states she has a Lap-Band that was placed approximately a decade ago. He has not had any issues since the procedure. She is reporting constipation. She has not noticed any yellowing to her skin or eyes or changes in the color of her urine/stool. She has not been running fevers. MD elicited complaint: abdominal pain Pertinent past history: other (lab band) Onset (ago): day(s) Pain Consistency: intermittent Location: Diffuse Severity: severe Quality: cramping Radiation: none Migration to: no migration Exacerbating factors: eating Relieving factors: nothing Associated Symptoms: Reports constipation and nausea; Denies chills, diarrhea, dysuria, fever(s), heartburn, hematochezia, melena, syncope and vomiting Related Data: Patient : No Review of Systems Const: Denies: fever(s), chills, body aches, fatigue or malaise Eyes: Denies: change in vision or blurry vision Card: Denies: chest pain, palpitations, irregular heart rhythm, lightheadedness, syncope or dyspnea on exertion Resp: Denies: dyspnea, productive cough or pain on inspiration GI: Reports: abdominal pain, nausea and constipation; Denies: vomiting, heartburn, diarrhea, hematochezia, melena or white/light colored stool : Denies: flank pain, difficulty voiding, dysuria, urinary frequency, urinary urgency or urinary hesitancy Musc: Denies: neck pain, back pain or joint pain Skin/Breast: Denies: rash Neuro: Denies: headache(s), numbness in extremities, weakness in extremities, sensory changes or dizziness PFS ED PFSH: Medical History Anxiety Enrolled in chronic care management Essential hypertension GERD (gastroesophageal reflux disease) Major depressive disorder Type 2 diabetes mellitus Social History Smoking and tobacco status: current every day smoker cigarettes Packs smoked per day: 1 Alcohol intake: never Substance/Drug Use: never Current gender identity: Female Physical Exam Const: COMMON NORMALS: no acute distress, average body habitus, patient oriented x3, no limitations, alert and well nourished GENERAL APPEARANCE: cooperative ORIENTATION/CONSCIOUSNESS: Yes awake, Yes oriented to person, Yes oriented to place and Yes oriented to time Eye: COMMON NORMALS: no scleral icterus Neck/C-Spine: COMMON NORMALS: full ROM, no lymphadenopathy, supple, no meningeal signs and no JVD Chest: COMMONS NORMALS: normal inspection of the chest and normal palpation of entire chest wall Resp: COMMON NORMALS: normal respiratory effort and clear to auscultation bilaterally AUSCULTATION: clear to auscultation bilaterally Cardio: COMMON NORMALS: no JVD, regular rate and regular rhythm RATE: regular rate RHYTHM: regular rhythm GI: COMMON NORMALS: Normal to inspection, nondistended, normoactive bowel sounds present, Soft to palpation, No hepatosplenomegaly present and no masses INSPECTION: Yes normal to inspection AUSCULTATION: Yes normoactive bowel sounds PALPATION: Yes Soft to palpation, Yes Tenderness to palpation present (GI) (diffuse), Yes Guarding due to palpation present (GI), No Rigid due to palpation and Yes No hepatosplenomegaly present : COMMON NORMALS: Yes no CVA tenderness BLADDER/KIDNEY EXAM: Yes no CVA tenderness Back/Pelvis: COMMON NORMALS: no CVA tenderness and thoracic and lumbar spine normal to inspection Extremity: COMMON NORMALS: normal to inspection, capillary refill normal, no clubbing, cyanosis or edema, no calf tenderness and no pedal edema GENERAL: Yes normal exam except as noted Neuro: BETSY COMA SCALE: document GCS findings Betsy coma scale eye opening: Spontaneous Betsy coma scale verbal response: Orientated Betsy coma scale motor response: Obey commands [place] coma scale total score: 15 COMMON NORMALS: patient oriented x3 SENSORIUM/ORIENTATION: Yes alert, Yes oriented to person, Yes oriented to place and Yes oriented to time MENINGEAL SIGNS: Yes no meningeal signs Skin: COMMON NORMALS: no rashes or lesions noted GENERAL SKIN EXAM: no rashes or lesions noted Course Vital Signs: Vital signs: Vital Signs Temperature 97.7 F 02/21/23 10:37 Pulse Rate 56 L 02/21/23 15:30 Respiratory Rate 16 02/21/23 14:03 Blood Pressure 142/72 02/21/23 15:30 Pulse Oximetry 100 02/21/23 15:30 Oxygen Delivery Me thod Room Air 02/21/23 15:30 MDM - Abdominal Pain Medical Decision Making Patient's vital signs are stable. Her blood work is nonactionable. UA is clear. CT imaging is negative for acute inflammatory process. Recommend she discontinue her steroids and muscle relaxer as she states they do not seem to be helping anyway. CT scan did comment on an adrenal nodule most likely reflecting a benign adenoma however patient does have a history of adrenal cancer therefore I do want her to follow-up with her primary care provider and/or oncologist potentially have this biopsied. Patient is aware of this and agrees with current plan. She states that she was supposed to have a referral to Dr. Aldana for some left leg pain that she has been having. She states she has been diagnosed with lumbar radiculopathy. She states she never got a referral and case management has not reached out to her in regards to this. I will go ahead and place another referral. She states leg pain today is essentially the same as what it has been over the past several weeks. She has not gotten much improvement from the steroids and muscle relaxers. Return ED precautions given. Lab Data 02/21/23 11:42 02/21/23 11:42 Labs/Radiology: Radiology Impressions Abdomen/Pelvis CT 02/21/23 13:45 IMPRESSION: 1. Negative for acute inflammatory process in the abdomen or pelvis. 2. Hepatic steatosis. 3. Gastric band over the upper stomach. 4. Lab adrenal 15 mm nodule likely reflecting a benign adenoma. 5. Moderate constipation Laboratory Results WBC 14.2 10^3/uL (4.0-10.0) H 02/21/23 11:42 RBC 4.92 10^6/uL (4.1-5.3) 02/21/23 11:42 Hgb 15.3 g/dL (11.5-15.3) 02/21/23 11:42 Hct 47.2 % (37.0-47.0) H 02/21/23 11:42 MCV 95.9 fl (81-99) 02/21/23 11:42 MCH 31.1 pg (28.0-34.0) 02/21/23 11:42 MCHC 32.4 g/dL (30.0-36.0) 02/21/23 11:42 RDW 14.6 % (12.1-15.1) 02/21/23 11:42 Plt Count 320 10^3/cmm (130-400) 02/21/23 11:42 MPV 10.2 fL (7.4-10.4) 02/21/23 11:42 Neut % (Auto) 69.6 % 02/21/23 11:42 Lymph % (Auto) 18.8 % 02/21/23 11:42 [place] % (Auto) 8.9 % 02/21/23 11:42 Eos % (Auto) 1.5 % 02/21/23 11:42 Baso % (Auto) 0.8 % 02/21/23 11:42 Neut # (Auto) 9.87 10^3/uL (1.8-7.7) H 02/21/23 11:42 Lymph # (Auto) 2.7 10^3/uL (0.8-4.8) 02/21/23 11:42 [place] # (Auto) 1.3 10^3/uL (0.2-0.9) H 02/21/23 11:42 Eos # (Auto) 0.2 10^3/uL (0.0-0.8) 02/21/23 11:42 Baso # (Auto) 0.1 10^3/uL (0.0-0.1) 02/21/23 11:42 Nucleated RBC % (auto) 0 % 02/21/23 11:42 Nucleated RBCs # 0.0 /100WBC 02/21/23 11:42 Sodium 136 mmol/L (136-145) 02/21/23 11:42 Potassium 4.5 mmol/L (3.5-5.1) 02/21/23 11:42 Chloride 100 mmol/L (98-107) 02/21/23 11:42 Carbon Dioxide 27 mmol/L (22-29) 02/21/23 11:42 Anion Gap 13.5 (5-19) 02/21/23 11:42 BUN 17 mg/dL (6-20) 02/21/23 11:42 Creatinine 0.6 mg/dL (0.5-0.9) 02/21/23 11:42 GFR Calculation 104.2 mL/min (90-130) 02/21/23 11:42 Glucose 112 mg/dL (65-115) 02/21/23 11:42 POC Glucose 118 mg/dL (70-110) H 02/21/23 13:53 Calculated Osmolality 284 mOsm/kg (285-295) L 02/21/23 11:42 Calcium 9.0 mg/dL (8.5-10.5) 02/21/23 11:42 Total Bilirubin 0.7 mg/dL (0.15-1.2) 02/21/23 11:42 AST 12 U/L (0-32) 02/21/23 11:42 ALT 20 U/L (0-33) 02/21/23 11:42 Alkaline Phosphatase 77 U/L (35-105) 02/21/23 11:42 Total Protein 6.6 g/dL (6.6-8.7) 02/21/23 11:42 Albumin 4.0 g/dL (3.5-5.2) 02/21/23 11:42 Globulin 2.6 g/dL (1.3-4.6) 02/21/23 11:42 Lipase 15 U/L (13-60) 02/21/23 11:42 Urine Color Light yellow (Yellow) 02/21/23 15:14 Urine Appearance Clear (CLEAR) 02/21/23 15:14 Urine pH 6 (5-7) 02/21/23 15:14 Ur Specific [place] 1.015 (1.005-1.030) 02/21/23 15:14 Urine Protein Neg (Negative) 02/21/23 15:14 Urine Glucose (UA) Norm (Normal) 02/21/23 15:14 Urine Ketones Negative (Negative) 02/21/23 15:14 Urine Blood Neg (Negative) 02/21/23 15:14 Urine Nitrate Negative (Negative) 02/21/23 15:14 Urine Bilirubin Neg (Negative) 02/21/23 15:14 Urine Urobilinogen Norm mg/dL (Negative) 02/21/23 15:14 Ur Leukocyte Esterase Negative (Negative) 02/21/23 15:14 Discharge Plan Discharge Patient Disposition: Home Clinical Impression: Abdominal pain Qualifiers: Abdominal location: generalized Qualified Code(s): R10.84 - Generalized abdominal pain Condition: Stable Prescriptions: No Action cyclobenzaprine 10 mg tablet 10 mg PO TID PRN (Reason: muscle spasm) Qty: 30 0RF epinephrine 0.3 mg/0.3 mL syringe 0.3 mg IM Q10M PRN (Reason: anaphylaxis) Qty: 2 3RF Rx Instructions: for 2 doses pt hasnt picked up this medication from the pharmacy yet ondansetron 8 mg tablet,disintegrating 8 mg PO Q8H PRN (Reason: nausea and vomiting) Qty: 20 0RF albuterol sulfate [ProAir HFA] 90 mcg/actuation HFA aerosol inhaler 2 puff INHALATION Q6H PRN (Reason: Shortness Of Breath) Qty: 8.5 2RF acetaminophen [Tylenol Extra Strength] 500 mg Tablet 1,000 mg PO PRN tizanidine 4 mg tablet 4 mg PO Q6H PRN (Reason: muscle spasticity) Qty: 20 0RF Rx Instructions: do not exceed 3 doses per 24 hrs fexofenadine [Stephanie] 60 mg Tablet 60 mg PO Q12H naproxen sodium [Aleve] 220 mg Capsule 220 mg PO BID PRN (Reason: Pain) Discharge Orders: Discharge ED (Routine); Ordered 02/21/23 Ordered By: Nai Yost Referrals: Brittany Hogue, TRUCK REPAIR SERVICE ESTIMATOR [Primary Care Provider] - Patient Instructions: Abdominal Pain (ED) Activity Restrictions/Additional Instructions: As we discussed you may try [id number] Colace, Senokot, MiraLAX to help with constipation. Need to follow-up with your primary care provider as soon as possible for reevaluation. We also discussed the adrenal nodule seen on your CT scan today. Radiologist felt this could be a benign adenoma however given your history of adrenal cancer I want you to follow-up with your primary care provider or your oncologist for this. I have also placed another referral with Dr. Aldana further evaluation of your left leg pain. Coding Level of Care Code ED Manager Helpdesk for Gypsy Calderon
--- NOTE | 2023-02-21 13:45 | CTR_ITS ---
PROCEDURE INFORMATION: Exam: CT Abdomen And Pelvis With Contrast Exam date and time: 02/21/2023 2:20 PM Age: 52 years old Clinical indication: Abdominal pain; Generalized; Prior surgery; Surgery date: 6+ months; Surgery type: Lap band; Additional info: Abdominal pain, nausea, constipation, HX lap band TECHNIQUE: Imaging protocol: Computed tomography of the abdomen and pelvis with contrast. Radiation optimization: All CT scans at this facility use at least one of these dose optimization techniques: automated exposure control; mA and/or kV adjustment per patient size (includes targeted exams where dose is matched to clinical indication); or iterative reconstruction. Contrast material: OMNI 350; Contrast volume: 100 ml; Contrast route: INTRAVENOUS (IV); REPORTING DATA: Count of CT and Cardiac NM exams in prior 12 months: This patient has received 0 known CTs and 0 known cardiac nuclear medicine studies in the 12 months prior to the current study. COMPARISON: CT kidney stone [id number] 10/10/2018 8:39 AM RADIATION DOSE METRICS: Total DLP (mGy-cm): 815.63 FINDINGS: Liver: Hepatic steatosis. Gallbladder and bile ducts: Normal. No calcified stones. No ductal dilation. Pancreas: Normal. No ductal dilation. Spleen: Normal. No splenomegaly. Adrenal glands: Lab adrenal 15 mm nodule likely reflecting a benign adenoma. Kidneys and ureters: Normal. No hydronephrosis. Stomach and bowel: Gastric band over the upper stomach. Moderate constipation Appendix: No evidence of appendicitis. Intraperitoneal space: Unremarkable. No free air. No significant fluid collection. Vasculature: Unremarkable. No abdominal aortic aneurysm. Lymph nodes: Unremarkable. No enlarged lymph nodes. Urinary bladder: Unremarkable as visualized. Reproductive: Unremarkable as visualized. Bones/joints: Unremarkable. No acute fracture. Soft tissues: Unremarkable. CT/CT abdomen pelvis w con* [id number] IMPRESSION: 1. Negative for acute inflammatory process in the abdomen or pelvis. 2. Hepatic steatosis. 3. Gastric band over the upper stomach. 4. Lab adrenal 15 mm nodule likely reflecting a benign adenoma. 5. Moderate constipation
[2023-02-21 13:57] LABS: Glucose Point of Care 118 mg/dL (70-110)
[2023-02-21] MEDS: ondansetron 2 mg/ML SDV 2 mL 4 MG IVP (14:00)
[2023-02-21] MEDS: morphine 4 mg/mL SDV 1 mL IVP (14:03)
[2023-02-21] MEDS: sodium chloride 0.9% 1,000 ML 999 ML IV (14:04)
[2023-02-21] MEDS: iohexol 350 mg/mL 500 mL Btl (per mL) IV (14:31)
[2023-02-21 15:28] LABS: Add Urine Microscopic? NO; Charge for UA Resulting for Rev
[2023-02-21 15:42] LABS: Bilirubin Urine Neg (Negative); Blood Urine Neg (Negative); Glucose Urine UA Norm (Normal); Ketones Urine Negative (Negative); Leukocyte Esterase Urine Negative (Negative); Nitrate Urine Negative (Negative); Protein Urine Neg (Negative); Specific Gravity, Urine 1.015 (1.005-1.030); Urine Appearance Clear (CLEAR); Urine Color Light yellow (Yellow); Urobilinogen Urine Norm (Negative); pH Urine 6 (5-7)
--- NOTE | 2023-02-21 16:05 | PC.SOCIAL ---
Addendum entered by Tamara Booker 03/06/23 12:21: Patient had a follow up appointment scheduled with ortho - patient did attend appointment. Original Note: Ortho Referral Referral faxed to Ortho at this time. Clinic to contact patient with appt date/time.
== END 2023-02-21 16:14 | disposition home or self-care (01) ==
PROVIDERS: Emergency Provider Physician Assistant; PCP Nurse Practitioner Family
DX: R10.84 Generalized abdominal pain (principal); I10 Essential (primary) hypertension; E11.9 Type 2 diabetes mellitus without complications; F17.210 Nicotine dependence, cigarettes, uncomplicated
CPT/HCPCS: 36415; 36416; 74177; 80053; 81003; 82962; 83690; 85025; 96361; 96374; 96375; 99285; J2270; J2405; J7030; Q9967

== ENCOUNTER → 2023-02-28 11:22 | Outpatient (BNVA) | payer MEDICARE, MEDICAID, SELFPAY | PROVIDERS: PCP Nurse Practitioner Family; Visit Provider Physician Assistant | DX: M54.50 Low back pain, unspecified (principal) | CPT/HCPCS: 72110 ==

== ENCOUNTER 2023-02-28 12:02 | Emergency (ER) | payer MEDICARE, MEDICAID, SELFPAY ==
[2023-02-28] VITALS (7 sets, daily range): BP systolic 104–188; BP diastolic 58–93; PULSE 66–101; RESP 13–21; TEMP 36.4; O2SAT 95–100; BMI 28.8
--- NOTE | 2023-02-28 12:05 | XRR_ITS ---
PROCEDURE INFORMATION: Exam: XR Chest Exam date and time: 02/28/2023 12:34 PM Age: 52 years old Clinical indication: Pain; Angina pectoris; Additional info: Cp TECHNIQUE: Imaging protocol: Radiologic exam of the chest. Views: 1 view. COMPARISON: CR XR chest 1V portable [id number] 07/13/2020 2:55 PM FINDINGS: Lungs: Unremarkable. No consolidation. Pleural spaces: Unremarkable. No pleural effusion. No pneumothorax. Heart/Mediastinum: Stable cardiomediastinal silhouette. Bones/joints: Unremarkable. XR/XR chest 1V portable [id number] IMPRESSION: No acute findings.
--- NOTE | 2023-02-28 12:05 | ECG_ITS ---
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 Measurements Intervals [place] Rate: 102 P: 75 [place]: 136 QRS: 29 QRSD: 70 T: 73 QT: 324 QTc: 424 Interpretive Statements SINUS TACHYCARDIA POSSIBLE LEFT ATRIAL ENLARGEMENT [-0.1mV P-WAVE IN V1/V2] NONSPECIFIC T-WAVE ABNORMALITY Compared to ECG 09/07/2015 18:19:57 T-wave abnormality now present Sinus rhythm no longer present Electronically Signed On 02-28-2023 12:15:16 CDT by Nicolas Ortega M.D. [id number]
[2023-02-28 12:38] LABS: Basophils # 0.2 10^3/uL (0.0-0.1); Basophils % 1.2 %; Eosinophils # 0.2 10^3/uL (0.0-0.8); Eosinophils % 1.4 %; Hematocrit 55.7 % (37.0-47.0); Hemoglobin 17.4 g/dL (11.5-15.3); Lymphocytes # 2.4 10^3/uL (0.8-4.8); Lymphocytes % 19.8 %; Mean Corpuscular HGB Conc 31.2 g/dL (30.0-36.0); Mean Corpuscular Hemoglobin 30.9 pg (28.0-34.0); Mean Corpuscular Volume 98.9 fl (81-99); Mean Platelet Volume 9.9 fL (7.4-10.4); Monocytes # 1.1 10^3/uL (0.2-0.9); Monocytes % 8.8 %; Neutrophils # 8.46 10^3/uL (1.8-7.7); Neutrophils % 68.6 %; Nucleated Red Blood Cells % 0 %; Platelet Count 283 10^3/cmm (130-400); Red Blood Count 5.63 10^6/uL (4.1-5.3); Red Cell Distribution Width 13.9 % (12.1-15.1); White Blood Count 12.3 10^3/uL (4.0-10.0)
[2023-02-28 13:40] LABS: Alanine Aminotransferase 12 U/L (0-33); Albumin Level 4.4 g/dL (3.5-5.2); Alkaline Phosphatase 89 U/L (35-105); Aspartate Amino Transferase 13 U/L (0-32); Blood Urea Nitrogen 11 mg/dL (6-20); Calcium 9.6 mg/dL (8.5-10.5); Carbon Dioxide 21 mmol/L (22-29); Chloride 94 mmol/L (98-107); Globulin 3.1 g/dL (1.3-4.6); Glomerular Filtration Rate 87.2 mL/min (90-130); Glucose 102 mg/dL (65-115); Lipase 15 U/L (13-60); Osmolality Calculated 274 mOsm/kg (285-295); Sodium 132 mmol/L (136-145); Total Protein 7.5 g/dL (6.6-8.7)
[2023-02-28 13:41] LABS: Troponin(5th) Baseline 7 ng/L (0-10)
[2023-02-28 13:44] LABS: Anion Gap 21.3 (5-19); Potassium 4.3 mmol/L (3.5-5.1)
--- NOTE | 2023-02-28 14:05 | ECG_ITS ---
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 Measurements Intervals [place] Rate: 81 P: 67 [place]: 138 QRS: 48 QRSD: 75 T: 80 QT: 367 QTc: 428 Interpretive Statements SINUS RHYTHM WITH OCCASIONAL SUPRAVENTRICULAR PREMATURE COMPLEXES Compared to ECG 02/28/2023 12:12:27 Sinus tachycardia no longer present T-wave abnormality no longer present Electronically Signed On 02-28-2023 14:43:15 CDT by Nicolas Ortega M.D. [id number]
--- NOTE | 2023-02-28 14:10 | MR_ITS ---
WS: [id number] MRI LUMBAR SPINE WITH AND WITHOUT CONTRAST. HISTORY: left foot drop, bladder incontinence COMPARISON: 02/07/2006 TECHNIQUE: Sagittal and axial multisequence imaging is submitted. Postcontrast imaging, MultiHance 17 mL. Slight increase in the thoracic kyphosis and mild curvature cervical, thoracic and lumbar spines. L3 anterolisthesis by 3.2 mm. Less than 2 mm anterolisthesis of L4. Disc spaces are mildly desiccated and narrowed. No fractures or marrow edema. No soft tissue mass compressing the conus. Conus terminates normally at L1-2 disc level. L1-L2: Normal. L2-L3: Mild annular disc bulging. There is mild encroachment upon the subarticular recesses and mild ligamentum flavum hypertrophy. Mild subarticular recess stenosis. L3-L4: Diffuse annular disc bulging. Mild ligamentum flavum and facet arthritis. LEFT foraminal disc protrusion contacting the LEFT exiting L3 nerve root causing moderate foraminal stenosis. There is mi ld disc encroachment upon the subarticular recesses. L4-L5: Diffuse annular disc bulging with encroachment upon the ventral thecal sac and subarticular re cesses. Disc contacts the traversing L5 nerve roots. Disc asymmetrically bulges to the RIGHT. Mild RI GHT foraminal stenosis. L5-S1: Mild annular disc bulge with a central disc protrusion. Contiguous to the LEFT with the centra l disc protrusion is a LEFT subarticular recess disc protrusion contacting and displacing the LEFT S1 nerve root. LEFT subarticular recess disc is extruded extending inferior to the disc level. There is mild disc contact without displacement on the RIGHT S1 nerve root. Postcontrast images are negative for mass causing compression upon the thecal sac or conus. No discit is or osteomyelitis. Mild LEFT adrenal hyperplasia. MR/MR lumbar spine wo/w con [id number] IMPRESSION: 1. No enhancing mass or cord/conus compression. 2. L5-S1: Central disc protrusion with a contiguous extruded disc extending in to the LEFT subarticular recess causing significant displacement on the LEFT S1 nerve root. Minimal disc contact on the RIGHT S1 nerve root without displaceme nt. 3. L3-4: LEFT foraminal disc protrusion contacts the LEFT exiting L3 nerve ro ot with moderate LEFT foraminal stenosis. 4. Mild annular disc bulging at L2-3, L3-4 and L4-5 with disc causing mild enc roachment upon the subarticular recesses. 5. L4-5: Mild RIGHT foraminal stenosis. 6. L3 anterolisthesis by 3.2 mm.
[2023-02-28 14:38] LABS: Troponin 5 2HR 6.41 ng/L (0-10)
[2023-02-28 14:47] LABS: Troponin 5 2HR Delta -0.59 ABS# (0-10)
[2023-02-28] MEDS: gadobenate dimeglumine 20 mL vial IV (15:18)
--- NOTE | 2023-02-28 15:21 | PC.NURSE ---
PT TAKEN TO MR AT 1435, HOLDING VITAL UNTIL SHE GETS BACK :)
[2023-02-28] MEDS: ondansetron 2 mg/ML SDV 2 mL 4 MG IVP (15:45)
[2023-02-28] MEDS: morphine 4 mg/mL SDV 1 mL IVP (15:45)
[2023-02-28] MEDS: sodium chloride 0.9% 1,000 ML 999 ML IV (15:46)
--- NOTE | 2023-02-28 16:07 | ED_ITS ---
HPI - Chest Pain General: Chief Complaint: Chest Pain Stated Complaint: chest and abd pain Time Seen by Provider: 02/28/23 13:58 History of Present Illness: This patient is a 52 year old presenting with two complaints - one is abdominal pain and constipation - and the other is lumbar pain and pain and weakness in her left leg. She says that her leg pain started a month ago when she sat and twisted the wrong way. She has weakness in the leg and has foot drop now. She has noted muscle atrophy. She was put on pain medicine and developed constipation that has not responded to home remedies. She was seen at the ortho spine clinic today and sent to the ED due to her abdominal pain. They also said they would order an MR for her leg weakness. Additionally she tells me that she has had some urinary incontinence. FOR[facility]LY [facility] ED PFSH: Medical History Anxiety Enrolled in chronic care management Essential hypertension GERD (gastroesophageal reflux disease) Major depressive disorder Type 2 diabetes mellitus Social History Smoking and tobacco status: current every day smoker cigarettes Packs smoked per day: 1 Alcohol intake: never Substance/Drug Use: never Current gender identity: Female Physical Exam Const: COMMON NORMALS: no acute distress, patient oriented x3, no limitations and alert GENERAL APPEARANCE: cooperative and comfortable HENMT: HEAD & SCALP: normal to inspection FACE & SINUS: normal facial exam Eye: GENERAL EYE: appearance normal, both eyes and all related structures Neck/C-Spine: COMMON NORMALS: supple, no meningeal signs and no JVD Chest: COMMONS NORMALS: normal inspection of the chest Resp: COMMON NORMALS: normal respiratory effort, No use of accessory muscles and clear to auscultation bilaterally AUSCULTATION: clear to auscultation bilaterally Cardio: COMMON NORMALS: no JVD, regular rate, regular rhythm and No murmurs present (Cardio) RATE: regular rate RHYTHM: regular rhythm GI: COMMON NORMALS: Normal to inspection, nondistended, normoactive bowel sounds present and Soft to palpation INSPECTION: Yes normal to inspection AUSCULTATION: Yes normoactive bowel sounds PALPATION: Yes Soft to palpation and Yes Tenderness to palpation present (GI) (mild, generalized) Back/Pelvis: COMMON NORMALS: thoracic and lumbar spine normal to inspection LUMBAR SPINE/LOWER BACK: Yes pain with ROM and Yes lumbar spinal tenderness Extremity: COMMON NORMALS: normal to inspection NARRATIVE EXTREMITY EXAM: mild asymmetry of the muscles of the lower legs Neuro: COMMON NORMALS: patient oriented x3, moves all extremities and no sensory deficits noted SENSORIUM/ORIENTATION: Yes alert MENINGEAL SIGNS: Yes no meningeal signs MOTOR EXAM: Abnormal motor strength present (weak dorsiflexion of the left foot - weak plantar flexion of lateral toes) Psych: COMMON NORMALS: mental status grossly normal, cooperative and normal affect Skin: COMMON NORMALS: no rashes or lesions noted and turgor normal GENERAL SKIN EXAM: no rashes or lesions noted and turgor normal Course Vital Signs: Vital signs: Vital Signs Temperature 97.6 F 02/28/23 12:10 Pulse Rate 66 02/28/23 19:33 Respiratory Rate 16 02/28/23 19:33 Blood Pressure 104/58 02/28/23 17:37 Pulse Oximetry 96 02/28/23 19:33 Oxygen Delivery Me thod Room Air 02/28/23 14:04 MDM - Chest Pain Medical Decision Making Patient with lumbar radiculopathy severe enough to be causing weakness and noticeable muscle atrophy. Bowel and bladder dysfunction. MR ordered. Patient's daughter also says that the patient has a history of adrenal cancer so a contrast MR was done. MR with significant disc protrusion at S1-L5 which is consistent with the patient's symptoms. Discussed with Dr. Aldana and he agrees with steroids - will follow up in the office next week. Abdominal pain may be related to the constipation - attempted enema in the ED - some results, but patient still symptomatic. Will go home with high dose miralax and continued follow up with her PCP. Lab Data 02/28/23 12:21 02/28/23 13:07 Radiology Impressions Chest X-Ray 02/28/23 12:05 IMPRESSION: No acute findings. Lumbar Spine MRI 02/28/23 14:10 IMPRESSION: 1. No enhancing mass or cord/conus compression. 2. L5-S1: Central disc protrusion with a contiguous extruded disc extending i nto the LEFT subarticular recess causing significant displacement on the LEFT S1 nerve root. Minimal disc contact on the RIGHT S1 nerve root without displacement. 3. L3-4: LEFT foraminal disc protrusion contacts the LEFT exiting L3 nerve root with moderate LEFT foraminal stenosis. 4. Mild annular disc bulging at L2-3, L3-4 and L4-5 with disc causing mild encroachment upon the subarticular recesses. 5. L4-5: Mild RIGHT foraminal stenosis. 6. L3 anterolisthesis by 3.2 mm. Laboratory Results WBC 12.3 10^3/uL (4.0-10.0) H 02/28/23 12:21 RBC 5.63 10^6/uL (4.1-5.3) H 02/28/23 12:21 Hgb 17.4 g/dL (11.5-15.3) H 02/28/23 12:21 Hct 55.7 % (37.0-47.0) H 02/28/23 12:21 MCV 98.9 fl (81-99) 02/28/23 12:21 MCH 30.9 pg (28.0-34.0) 02/28/23 12:21 MCHC 31.2 g/dL (30.0-36.0) 02/28/23 12:21 RDW 13.9 % (12.1-15.1) 02/28/23 12:21 Plt Count 283 10^3/cmm (130-400) 02/28/23 12:21 MPV 9.9 fL (7.4-10.4) 02/28/23 12:21 Neut % (Auto) 68.6 % 02/28/23 12:21 Lymph % (Auto) 19.8 % 02/28/23 12:21 [place] % (Auto) 8.8 % 02/28/23 12:21 Eos % (Auto) 1.4 % 02/28/23 12:21 Baso % (Auto) 1.2 % 02/28/23 12:21 Neut # (Auto) 8.46 10^3/uL (1.8-7.7) H 02/28/23 12:21 Lymph # (Auto) 2.4 10^3/uL (0.8-4.8) 02/28/23 12:21 [place] # (Auto) 1.1 10^3/uL (0.2-0.9) H 02/28/23 12:21 Eos # (Auto) 0.2 10^3/uL (0.0-0.8) 02/28/23 12:21 Baso # (Auto) 0.2 10^3/uL (0.0-0.1) H 02/28/23 12:21 Nucleated RBC % (auto) 0 % 02/28/23 12:21 Nucleated RBCs # 0.0 /100WBC 02/28/23 12:21 Sodium 132 mmol/L (136-145) L 02/28/23 13:07 Potassium 4.3 mmol/L (3.5-5.1) 02/28/23 13:07 Chloride 94 mmol/L (98-107) L 02/28/23 13:07 Carbon Dioxide 21 mmol/L (22-29) L 02/28/23 13:07 Anion Gap 21.3 (5-19) H 02/28/23 13:07 BUN 11 mg/dL (6-20) 02/28/23 13:07 Creatinine 0.7 mg/dL (0.5-0.9) 02/28/23 13:07 GFR Calculation 87.2 mL/min (90-130) L 02/28/23 13:07 Glucose 102 mg/dL (65-115) 02/28/23 13:07 Calculated Osmolality 274 mOsm/kg (285-295) L 02/28/23 13:07 Calcium 9.6 mg/dL (8.5-10.5) 02/28/23 13:07 Total Bilirubin 1.0 mg/dL (0.15-1.2) 02/28/23 13:07 AST 13 U/L (0-32) 02/28/23 13:07 ALT 12 U/L (0-33) 02/28/23 13:07 Alkaline Phosphatase 89 U/L (35-105) 02/28/23 13:07 Troponin T Baseline 7 ng/L (0-10) 02/28/23 13:07 Troponin T 120 Minute 6.41 ng/L (0-10) 02/28/23 14:11 Delta Troponin T -0.59 ABS# (0-10) L 02/28/23 14:11 Total Protein 7.5 g/dL (6.6-8.7) 02/28/23 13:07 Albumin 4.4 g/dL (3.5-5.2) 02/28/23 13:07 Globulin 3.1 g/dL (1.3-4.6) 02/28/23 13:07 Lipase 15 U/L (13-60) 02/28/23 13:07 Discharge Plan Discharge Patient Disposition: Home Clinical Impression: Acute lumbar radiculopathy, Abdominal pain, Constipation, Acute herniated disc Condition: Stable Prescriptions: New prednisone 20 mg tablet See Taper PO DAILY 9 Days Qty: 20 0RF Taper: predniSONE 60-10 60 mg Daily for 3 Days and 0 Hour 40 mg Daily for 3 Days and 0 Hour 20 mg Daily for 3 Days and 0 Hour Miralax 17 gram/dose powder 17 g PO BID Qty: 238 0RF No Action cyclobenzaprine 10 mg tablet 10 mg PO TID PRN (Reason: muscle spasm) Qty: 30 0RF epinephrine 0.3 mg/0.3 mL syringe 0.3 mg IM Q10M PRN (Reason: anaphylaxis) Qty: 2 3RF Rx Instructions: for 2 doses pt hasnt picked up this medication from the pharmacy yet ondansetron 8 mg tablet,disintegrating 8 mg PO Q8H PRN (Reason: nausea and vomiting) Qty: 20 0RF albuterol sulfate [ProAir HFA] 90 mcg/actuation HFA aerosol inhaler 2 puff INHALATION Q6H PRN (Reason: Shortness Of Breath) Qty: 8.5 2RF docusate sodium 283 mg/5 mL enema 283 mg MD DAILY PRN (Reason: constipation) Qty: 150 1RF acetaminophen [Tylenol Extra Strength] 500 mg Tablet 1,000 mg PO PRN fexofenadine [Stephanie] 60 mg Tablet 60 mg PO Q12H Discharge Orders: Discharge ED (Routine); Ordered 02/28/23 Ordered By: Gwendolyn Raza Referrals: Phill Aldana DO [Physician] - Brittany Hogue NP [Primary Care Provider] - Patient Instructions: Abdominal Pain (ED), Opioid Safety, Pain Management Activity Restrictions/Additional Instructions: Please follow up with Dr. Aldana for further care of your back and leg issues. Use the miralax - up to three doses in a day to help relieve your constipation. Drink plenty of fluids. 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
[2023-02-28] MEDS: predniSONE 20 mg Tablet 60 MG PO (17:31)
--- NOTE | 2023-02-28 18:33 | ECG_ITS ---
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 Measurements Intervals [place] Rate: 60 P: 21 NM: 124 QRS: 36 QRSD: 81 T: 44 QT: 438 QTc: 440 Interpretive Statements SINUS RHYTHM Compared to ECG 02/28/2023 14:21:39 No significant changes Electronically Signed On 02-28-2023 19:06:09 CDT by Bettye Angelo M.D. [id number]
--- NOTE | 2023-02-28 19:20 | PC.NURSE ---
PT WAS GIVEN 3 ENEMAS OF MILK OF MOL, MINIMAL STOOL OBSERVED. PT DECIDED THAT SHE WAS OKAY TO GO HOME AND TRY PO CARE FOR THE CONSTIPATION.
== END 2023-02-28 19:34 | disposition home or self-care (01) ==
PROVIDERS: Emergency Medicine; Emergency Provider Emergency Medicine; PCP Nurse Practitioner Family
DX: M54.16 Radiculopathy, lumbar region (principal); K59.00 Constipation, unspecified; M51.26 Other intervertebral disc displacement, lumbar region; I10 Essential (primary) hypertension; E11.9 Type 2 diabetes mellitus without complications; F17.210 Nicotine dependence, cigarettes, uncomplicated
CPT/HCPCS: 36415; 71045; 72110; 72158; 80053; 83690; 84484; 85025; 93005; 96361; 96374; 96375; 99203; 99285; A9577; J2270; J2405; J7030; J7512

== ENCOUNTER → 2023-03-12 10:35 | Outpatient (BNVA) | payer MEDICARE, MEDICAID, SELFPAY | PROVIDERS: PCP Nurse Practitioner Family; Referring Provider Physician Assistant; Visit Provider Orthopaedic Surgery | DX: M54.50 Low back pain, unspecified (principal) | CPT/HCPCS: 99214 ==

== ENCOUNTER → 2023-03-21 13:23 | Outpatient (BNVA) | payer MEDICARE, MEDICAID, SELFPAY | PROVIDERS: PCP Nurse Practitioner Family; Visit Provider Nurse Practitioner Family | DX: R30.9 Painful micturition, unspecified (principal) | CPT/HCPCS: 81000 ==

== ENCOUNTER → 2023-09-19 14:43 | Outpatient (BNVA) | payer MEDICARE, MEDICAID, SELFPAY | PROVIDERS: PCP Nurse Practitioner Family; Visit Provider Orthopaedic Surgery | DX: M54.50 Low back pain, unspecified (principal) | CPT/HCPCS: 99214 ==

== ENCOUNTER → 2023-11-05 10:11 | Outpatient (BNVA) | payer MEDICARE, MEDICAID, SELFPAY | PROVIDERS: PCP Nurse Practitioner Family; Visit Provider Orthopaedic Surgery | DX: M79.671 Pain in right foot (principal); M54.50 Low back pain, unspecified; M48.062 Spinal stenosis, lumbar region with neurogenic claudication | CPT/HCPCS: 99214 ==

== ENCOUNTER → 2023-12-23 08:57 | Outpatient (BNVA) | payer MEDICARE, MEDICAID, SELFPAY | PROVIDERS: PCP Nurse Practitioner Family; Visit Provider Anesthesiology Pain Medicine | DX: M48.062 Spinal stenosis, lumbar region with neurogenic claudication (principal); M51.16 Intervertebral disc disorders with radiculopathy, lumbar region; M47.816 Spondylosis without myelopathy or radiculopathy, lumbar region; M51.36 Other intervertebral disc degeneration, lumbar region; M47.22 Other spondylosis with radiculopathy, cervical region; M43.16 Spondylolisthesis, lumbar region | CPT/HCPCS: 99204 ==

== ENCOUNTER → 2024-02-03 10:17 | Outpatient (BNVA) | payer MEDICARE, MEDICAID, SELFPAY | PROVIDERS: PCP Nurse Practitioner Family; Visit Provider Anesthesiology Pain Medicine | DX: M48.062 Spinal stenosis, lumbar region with neurogenic claudication (principal); M51.16 Intervertebral disc disorders with radiculopathy, lumbar region; M47.816 Spondylosis without myelopathy or radiculopathy, lumbar region; M51.36 Other intervertebral disc degeneration, lumbar region; M47.22 Other spondylosis with radiculopathy, cervical region | CPT/HCPCS: 99214 ==

== ENCOUNTER → 2024-03-12 15:17 | Outpatient (BNVA) | payer MEDICARE, MEDICAID, SELFPAY | PROVIDERS: PCP Nurse Practitioner Family; Referring Provider Orthopaedic Surgery; Visit Provider Podiatrist Foot & Ankle Surgery | DX: Q82.8 Other specified congenital malformations of skin; G62.9 Polyneuropathy, unspecified; E11.42 Type 2 diabetes mellitus with diabetic polyneuropathy; Z79.4 Long term (current) use of insulin | CPT/HCPCS: 99203 ==

== ENCOUNTER → 2024-04-20 11:32 | Outpatient (BNVA) | payer MEDICARE, MEDICAID, SELFPAY | PROVIDERS: PCP Nurse Practitioner Family; Visit Provider Nurse Practitioner Family | DX: R07.0 Pain in throat (principal); R68.89 Other general symptoms and signs | CPT/HCPCS: 87426 ==